=== PATIENT | male | born 1965 ===

== ENCOUNTER → 2023-09-22 06:35 | Outpatient (REF) | payer OTHER, SELFPAY | LOC: EMG 06:35 | PROVIDERS: ATTENDING PHYSICIAN Podiatrist Foot & Ankle Surgery; FAMILY PHYSICIAN Nurse Practitioner Adult Health | DX: R20.0 Anesthesia of skin (principal) | CPT/HCPCS: 95886; 95911 ==

== ENCOUNTER → 2023-12-28 07:43 | Outpatient (REF) | payer OTHER, SELFPAY | LOC: RCS 07:43 | PROVIDERS: ATTENDING PHYSICIAN Internal Medicine; FAMILY PHYSICIAN Family Medicine | DX: E11.9 Type 2 diabetes mellitus without complications (principal); R06.09 Other forms of dyspnea | CPT/HCPCS: 93017 ==

== ENCOUNTER → 2024-01-21 07:54 | Outpatient (REF) | payer OTHER, SELFPAY | LOC: RCS 07:54 | PROVIDERS: ATTENDING PHYSICIAN Internal Medicine; FAMILY PHYSICIAN Family Medicine | DX: E11.9 Type 2 diabetes mellitus without complications (principal); R06.09 Other forms of dyspnea | CPT/HCPCS: 93306; Q9950 ==